=== PATIENT | female | born 1960 | race Caucasian/White ===

== ENCOUNTER 2024-12-30 22:57 | Observation (INO) ==
--- NOTE | 2024-12-30 23:05 | Emergency Department Note ---
Impression & Plan Urinary tract infection Admission ED Provider Note HPI: History obtained from patient. The patient is a 64-year-old female who presents emergency department with chief complaint of lower abdominal pain as well as nausea, vomiting, and diarrhea that began earlier this morning. Patient states her symptoms had been persistent throughout the day and therefore she contacted EMS for transport to the ED. patient also notes that she has felt somewhat dizzy recently, she states that she did have a fall from ground-level earlier today onto her buttocks when she was attempting to put on her slipper shoes. On arrival here to the ED the patient is alert, she is hypotensive at 81/60 but otherwise she is hemodynamically stable and saturating well on room air. Patient complains of some pain in her lower abdomen. ROS: - Per HPI Differential Diagnosis: Viral gastroenteritis, acute colitis, diverticulitis flare, pyelonephritis, urinary tract infection, acute cholecystitis, acute appendicitis, amongst other potential pathologies. *Outpatient medications and allergy history reviewed. PE: General: Alert, morbidly obese HEENT: Normocephalic, trachea midline Eyes: Extraocular eye movement is intact, no scleral erythema Pulmonary: Clear to auscultation bilaterally, no wheezing Cardio: Regular rate and rhythm GI: Abdomen is soft to palpation, moderate tenderness diffusely to palpation without guarding or rigidity : No suprapubic tenderness, mild left CVA tenderness MSK: No evidence of trauma or malformation of the extremities, no edema Skin: No evidence of rash Neuro: Alert, no focal deficits Psychiatric: Cooperative INDEPENDENT INTERPRETATIONS: property assessment monitor: (As interpreted by myself): - An order was placed for continuous cardiac monitoring - Patient was noted to be in sinus rhythm with a rate of 82 EKG: (As interpreted by myself): Rate: 85 Rhythm: Normal sinus rhythm Intervals: Within normal limits ST changes: No ST elevation Time: 2334 Interventions provided in ED: - IV fluid bolus, IV morphine, IV Zofran, IV ceftriaxone Medical Decision Making: IV was established and lab work obtained, patient was placed on library monitor. Lab work shows a leukocytosis of 14.21, hemoglobin is normal, platelet count is normal, CMP does not show any evidence of any critical findings, creatinine is noted to be elevated at 1.64 with unclear baseline, patient was given IV fluids in the ED. Troponin is negative, there is no transaminitis, bilirubin is normal. EKG per my interpretation shows normal sinus rhythm without any acute ischemic changes. Urinalysis was obtained and does appear to be concerning for UTI, urine nitrite is positive, 2+ leukocyte esterase, greater than 50 pyuria. Will send for culture, blood cultures were also obtained and the patient was ordered a dose of IV ceftriaxone. CT imaging was concerning for a left-sided kidney infection without any obvious ureteral stone per the interpreting radiologist. I discussed all of the above findings with the patient, she states she feels weak and would prefer admission as opposed to outpatient management which I also think is reasonable given her leukocytosis, elevated creatinine, UTI, and possible left-sided pyelonephritis. [facility] hospitalist service was consulted for admission and the patient was placed for admission in stable condition. Consultants/Discussions held with other healthcare providers: - Hospitalist, Dr. Garcia Disposition discussion held by myself with: - Patient Diagnosis: 1. Urinary tract infection, acute 2. Abdominal pain, acute 3. Left-sided pyelonephritis, acute 4. Leukocytosis, acute 5. Elevated creatinine, acute Disposition: Admission Kieran Kapoor DO Emergency Medicine Past Med/Surg History Problem List (Updated 12/31/24 @ 04:32 by Kieran Kapoor DO) Urinary tract infection (Acute) Social History Smoking Status: Current every day smoker Tobacco Type: Cigarettes Preferred Language: Lithuanian Feels Safe at Home: Yes Allergies Allergies Allergy/AdvReac Type Severity Reaction Status Date / Time aspirin Allergy Severe THROAT Verified 12/31/24 00:53 CLOSES/HIVES pollen extracts Allergy Severe CAUSE Verified 12/31/24 00:53 ASTHMA ATTACKS Home Meds Home Medications Medication Instructions Recorded Confirmed Leg Cramps 1 dose PO DIRECTED PRN LEG 12/31/24 12/31/24 CRAMPS albuterol sulfate 90 mcg/actuation 2 puff inhalation QID PRN 12/31/24 12/31/24 aerosol inhaler Shortness Of Breath Or Wheezing bupropion HCl 200 mg tablet,12 hr 200 mg PO BID 12/31/24 12/31/24 sustained-release gabapentin 600 mg tablet 600 mg PO TID 12/31/24 12/31/24 lisinopril 20 mg tablet 20 mg PO DAILY 12/31/24 12/31/24 loratadine 10 mg tablet 10 mg PO DAILY 12/31/24 12/31/24 metoprolol succinate 25 mg 25 mg PO DAILY 12/31/24 12/31/24 tablet,extended release 24 hr topiramate 100 mg tablet 100 mg PO BID 12/31/24 12/31/24 venlafaxine 75 mg capsule,extended 75 mg PO DAILY 12/31/24 12/31/24 release 24 hr Results & Data (ED) Vital Signs Vital Signs - 24 hr 12/30/24 23:15 12/30/24 23:28 12/30/24 23:30 Temperature Temperature Source Pulse Rate 87 84 Pulse Rate [Apical] 87 Pulse Rhythm Regular Pulse Rhythm [Apical] Regular Pulse Strength Normal Pulse Strength [Apical] Normal Respiratory Rate 16 16 Respiratory Effort / Characteristics Non-Labored Non-Labored Respiratory Depth Normal Normal Respiratory Pattern Regular Regular Blood Pressure 97/68 L Blood Pressure [Right Arm] 81/60 L Blood Pressure Mean 77 Blood Pressure Mean [Right Arm] 67 Blood Pressure Position Lying Blood Pressure Position [Right Arm] Lying Pulse Oximetry 96 95 Oxygen Delivery Method Room Air Room Air Sepsis Recent Fever Within 48 Hours No Sepsis New/Unexplained Change in Mental Status No Sepsis Action Taken by Nursing No Action Required 12/30/24 23:30 12/31/24 00:40 12/31/24 02:01 Temperature 37.0 C Temperature Source Oral Pulse Rate 84 Pulse Rate [Apical] 81 Pulse Rhythm Regular Pulse Rhythm [Apical] Regular Pulse Strength Pulse Strength [Apical] Normal Respiratory Rate 16 16 Respiratory Effort / Characteristics Non-Labored Respiratory Depth Normal Respiratory Pattern Regular Blood Pressure Blood Pressure [Right Arm] 138/98 Blood Pressure Mean Blood Pressure Mean [Right Arm] 111 Blood Pressure Position Blood Pressure Position [Right Arm] Lying Pulse Oximetry 95 93 Oxygen Delivery Method Room Air Room Air Sepsis Recent Fever Within 48 Hours Sepsis New/Unexplained Change in Mental Status Sepsis Action Taken by Nursing 12/31/24 03:22 Temperature Temperature Source Pulse Rate 85 Pulse Rate [Apical] Pulse Rhythm Pulse Rhythm [Apical] Pulse Strength Pulse Strength [Apical] Respiratory Rate Respiratory Effort / Characteristics Respiratory Depth Respiratory Pattern Blood Pressure Blood Pressure [Right Arm] Blood Pressure Mean Blood Pressure Mean [Right Arm] Blood Pressure Position Blood Pressure Position [Right Arm] Pulse Oximetry Oxygen Delivery Method Sepsis Recent Fever Within 48 Hours Sepsis New/Unexplained Change in Mental Status Sepsis Action Taken by Nursing Laboratory Data 12/30/24 23:54 11/24/25 23:54 Lab Results 12/30/24 12/30/24 12/31/24 Range/Units 23:28 23:54 03:02 WBC 14.21 H (4.8-10.8) K/ul RBC 5.06 (4.20-5.40) M/uL Hgb 15.3 (12.0-16.0) g/dL Hct 45.1 (37.0-47.0) % MCV 89.1 (80.0-100.0) fL MCH 30.2 (25.0-34.0) pg MCHC 33.9 (32.0-36.0) g/dL RDW Std Deviation 43.1 (36.4-46.3) fL RDW Coeff of Arnoldo 13.2 (11.5-14.5) % Plt Count 195 (130-400) K/uL MPV 12.2 (9.4-12.4) fL Immature Gran % (Auto) 1.1 % Neut % (Auto) 80.1 % Lymph % (Auto) 8.7 % [place] % (Auto) 9.5 % Eos % (Auto) 0.2 % Baso % (Auto) 0.4 % Neut # (Auto) 11.39 H (1.40-6.50) K/uL Lymph # (Auto) 1.24 (1.20-3.40) K/uL [place] # (Auto) 1.35 H (0.11-0.59) K/uL Eos # (Auto) 0.03 (0.00-0.50) K/uL Baso # (Auto) 0.05 (0.00-0.20) K/uL Immature Gran # (Auto) 0.15 (0.01-0.20) K/uL PT 10.6 (9.0-12.0) Seconds INR 1.0 (0.9-1.1) Sodium 139 (136-145) mmol/L Potassium 4.0 (3.5-5.1) mmol/L Chloride 108 H (98-107) mmol/L Carbon Dioxide 23 (21-32) mmol/L Anion Gap 8 (3-11) BUN 13 (6-23) mg/dl Creatinine 1.64 H (0.6-1.2) mg/dl Est Cr Clr Drug Dosing 44.0 ml/min eGFR 35.18 BUN/Creatinine Ratio 7.9 L (10-20) Glucose 168 H (70-99(Fasting)) mg/dl Calcium 9.0 (8.6-10.3) mg/dl Total Bilirubin 0.8 (0.2-1.0) mg/dl AST 15 (13-39) U/L ALT 11 (7-52) U/L Alkaline Phosphatase 114 H (34-104) U/L Troponin I High Sens 2.5 (0-14) pg/ml Total Protein 6.6 (6.0-8.3) gm/dl Albumin 3.7 (3.4-5.0) gm/dl Globulin 2.9 (2.5-4.0) gm/dl Albumin/Globulin Ratio 1.3 (0.9-2) Lipase 25 (11-82) U/L Urine Color Dark Yellow Urine Appearance Cloudy A (Clear) Urine pH 5.0 (4.5-7.5) Ur Specific [place] > 1.045 H (1.000-1.030) Urine Protein 2+ H (Negative) Urine Glucose (UA) Negative (Negative) Urine Ketones Trace H (Negative) Urine Blood 1+ H (Negative) Urine Nitrite Positive A (Negative) Urine Bilirubin 1+ H (Negative) Urine Urobilinogen Negative (Negative) Ur Leukocyte Esterase 2+ H (Negative) Urine WBC (Auto) >50 H (0-5) /hpf Urine RBC (Auto) 3-5 H (0-2) /hpf U Hyaline Cast (Auto) 11-20 H (0-2) /lpf U Epithel Cells (Auto) 3-5 H (0-2) /hpf Urine Bacteria (Auto) 1+ H (None Seen) Urine Comment SARS-CoV-2 (PCR) NEGATIVE (Negative) Influenza Type A (PCR) Negative (Neg) Influenza Type B (PCR) Negative (Neg) RSV (RT-PCR) Negative (Neg) Administered Medications Discontinued Medications Sodium Chloride (Nss) 1,000 mls @ 999 mls/hr IV .Q1H1M STA Stop: 12/31/24 00:00 Last Infusion: 12/31/24 00:59 Dose: Infused Documented By: henry Admin: 12/30/24 23:48 Dose: 999 mls/hr Documented By: henry Sodium Chloride (Nss) 1,000 mls @ 999 mls/hr IV .Q1H1M ONE Stop: 12/31/24 01:33 Last Infusion: 12/31/24 01:45 Dose: Infused Documented By: henry Admin: 12/31/24 00:42 Dose: 999 mls/hr Documented By: henry Ioversol (Optiray 320 100ml) 100 ml IV ONCE ONE Stop: 12/31/24 01:08 Last Admin: 12/31/24 01:08 Dose: 93 ml Documented By: KELTON Morphine Sulfate (Morphine Sulfate 4 Mg/Ml 1 Ml Carp\Vial) 4 mg IV NOW STA Stop: 12/30/24 23:05 Last Admin: 12/31/24 00:06 Dose: 4 mg Documented By: henry Ondansetron HCl (Ondansetron Inj 2 Mg/Ml 2 Ml Vial) 4 mg IV NOW STA Stop: 12/30/24 23:01 Last Admin: 12/30/24 23:06 Dose: 4 mg Documented By: henry Imaging Data Radiologist's Impression: Abdomen/Pelvis CT 12/30/24 23:04 EXAM: CT abd pelvis IV con only CLINICAL HISTORY: N/V/D TECHNIQUE: Contiguous axial images were obtained from the level of the diaphragm to the pubic symphysis with intravenous contrast. Coronal and sagittal reconstructions were likewise performed and indicated to increase the sensitivity for detecting clinically relevant pathology. If IV contrast material had not been administered, the likelihood of detecting abnormalities relevant to the patient's condition would have been substantially decreased. CT scan was performed according to ALARA (as low as reasonably achievable). COMPARISON: None. FINDINGS: The visualized lung bases are clear. The liver is normal in size and attenuation. No focal liver lesions are seen. There is no intra or extrahepatic biliary ductal dilatation. Hepatic vasculature is patent. The gallbladder is present. The spleen, pancreas, and adrenal glands are unremarkable. Left kidney appears relatively small in size as compared its counterpart and shows moderate left perinephric fat stranding.Mild hydronephrosis with entire left ureter is prominent with no obvious ureteric calculus. Left kidney show nonobstructing calculus of size 4 mm in mid calyx 3 mm, 2 mm and 1 mm in lower calyx. Right kidney is normal in size and attenuation-There is no hydronephrosis or perinephric fat stranding. No renal calculi or renal masses are identified. The bladder is empty. Pelvic viscera are unremarkable. No focal or diffuse bowel wall thickening or evidence of bowel obstruction is identified. No imaging evidence of appendicitis. Abdominal and pelvic vasculature is patent. No adenopathy or fluid collections are seen. No aggressive appearing osseous lesions are identified. IMPRESSION: Left kidney appears relatively small in size as compared its counterpart and shows moderate left perinephric fat stranding. Mild hydronephrosis with entire left ureter is prominent with no obvious ureteric calculus. Left kidney show nonobstructing calculus of size 4 mm in mid-calyx 3 mm, 2 mm and 1 mm in lower calyx. Electronically signed by Renan Muñiz 12-31-2024 02:04 AM Discharge Plan Visit Data Chief Complaint: GI Assessment Stated Complaint: Nausea/Vomitting/Diarrhea ED Provider: Kieran Kapoor Discharge Problem: Urinary tract infection Patient Disposition: Admitted As Inpatient Condition: Fair Forms Stand Alone Forms: [facility] [place] [facility] Prescriptions Prescriptions: No Action venlafaxine 75 mg capsule,extended release 24hr 75 mg PO DAILY gabapentin 600 mg tablet 600 mg PO TID lisinopril 20 mg tablet 20 mg PO DAILY metoprolol succinate 25 mg tablet extended release 24 hr 25 mg PO DAILY albuterol sulfate 90 mcg/actuation HFA aerosol inhaler 2 puff INHALATION QID PRN (Reason: Shortness Of Breath Or Wheezing) topiramate 100 mg tablet 100 mg PO BID loratadine 10 mg Tablet 10 mg PO DAILY bupropion HCl 200 mg tablet sustained-release 12 hr 200 mg PO BID Leg Cramps 1 dose PO DIRECTED PRN (Reason: LEG CRAMPS) Referrals Referrals: PCP,NO [Physician] - Discharge Problem: Urinary tract infection Qualifiers: Urinary tract infection type: site unspecified Hematuria presence: with hematuria Qualified Code(s): N39.0 - Urinary tract infection, site not specified ; R31.9 - Hematuria, unspecified
[2024-12-30] MEDS: ONDANSETRON INJ 2 MG/ML 2 ML VIAL IV STA (23:06)
[2024-12-30] MEDS: SODIUM CHLORIDE 0.9% 1,000 ML IV STA (23:48)
[2024-12-31] MEDS: MoRPHine SULFATE 4 MG/ML 1 ML CARP\\VIAL IV STA (00:06)
[2024-12-31 00:18] LABS: Influenza A virus by PCR Negative (Neg); Influenza B virus by PCR Negative (Neg); SARS CoV2 RNA(COVID-19) Ceph NEGATIVE (Negative)
[2024-12-31 00:31] LABS: Hematocrit (blood only) 45.1 % (37.0-47.0); Hemoglobin 15.3 g/dL (12.0-16.0); Immature Granulocytes # (auto) 0.15 K/uL (0.01-0.20); Immature Granulocytes % (auto) 1.1 %; Mean Corpuscular Hemoglobin 30.2 pg (25.0-34.0); Mean Corpuscular Volume 89.1 fL (80.0-100.0); Platelet Count 195 K/uL (130-400); RDW Standard Deviation 43.1 fL (36.4-46.3); Red Blood Count 5.06 M/uL (4.20-5.40); White Blood Count 14.21 K/ul (4.8-10.8)
[2024-12-31] MEDS: SODIUM CHLORIDE 0.9% 1,000 ML IV ONE (00:42)
[2024-12-31 00:48] LABS: Alanine Aminotransferase 11.0 U/L (7-52); Albumin Globulin Ratio 1.3 (0.9-2); Albumin Level 3.7 gm/dl (3.4-5.0); Alkaline Phosphatase 114.0 U/L (34-104); Anion Gap 8.0 (3-11); Bilirubin,Total 0.8 mg/dl (0.2-1.0); Blood Urea Nitrogen 13.0 mg/dl (6-23); Calcium 9.0 mg/dl (8.6-10.3); Carbon Dioxide 23.0 mmol/L (21-32); Chloride 108.0 mmol/L (98-107); Creatinine Clr Calc Pharmacy 44.0 ml/min; Globulin 2.9 gm/dl (2.5-4.0); Glucose 168.0 mg/dl (70-99(Fasting)); Lipase 25.0 U/L (11-82); Potassium 4.0 mmol/L (3.5-5.1); Sodium 139.0 mmol/L (136-145); Total Protein 6.6 gm/dl (6.0-8.3)
[2024-12-31 00:54] LABS: INR 1.0 (0.9-1.1); Prothrombin Time 10.6 Seconds (9.0-12.0)
[2024-12-31] MEDS: OPTIRAY 320 100ml IV ONE (01:08)
--- NOTE | 2024-12-31 02:05 | CT Scan Report ---
EXAM: CT abd pelvis IV con only CLINICAL HISTORY: N/V/D TECHNIQUE: Contiguous axial images were obtained from the level of the diaphragm to the pubic symphysis with intravenous contrast. Coronal and sagittal reconstructions were likewise performed and indicated to increase the sensitivity for detecting clinically relevant pathology. If IV contrast material had not been administered, the likelihood of detecting abnormalities relevant to the patient's condition would have been substantially decreased. CT scan was performed according to ALARA (as low as reasonably achievable). COMPARISON: None. FINDINGS: The visualized lung bases are clear. The liver is normal in size and attenuation. No focal liver lesions are seen. There is no intra or extrahepatic biliary ductal dilatation. Hepatic vasculature is patent. The gallbladder is present. The spleen, pancreas, and adrenal glands are unremarkable. Left kidney appears relatively small in size as compared its counterpart and shows moderate left perinephric fat stranding.Mild hydronephrosis with entire left ureter is prominent with no obvious ureteric calculus. Left kidney show nonobstructing calculus of size 4 mm in mid calyx 3 mm, 2 mm and 1 mm in lower calyx. Right kidney is normal in size and attenuation-There is no hydronephrosis or perinephric fat stranding. No renal calculi or renal masses are identified. The bladder is empty. Pelvic viscera are unremarkable. No focal or diffuse bowel wall thickening or evidence of bowel obstruction is identified. No imaging evidence of appendicitis. Abdominal and pelvic vasculature is patent. No adenopathy or fluid collections are seen. No aggressive appearing osseous lesions are identified. IMPRESSION: Left kidney appears relatively small in size as compared its counterpart and shows moderate left perinephric fat stranding. Mild hydronephrosis with entire left ureter is prominent with no obvious ureteric calculus. Left kidney show nonobstructing calculus of size 4 mm in mid-calyx 3 mm, 2 mm and 1 mm in lower calyx. Electronically signed by Renan Muñiz 12-31-2024 02:04 AM
[2024-12-31 03:45] LABS: Appearance Urine Cloudy (Clear); Bacteria Urine Automated 1+ (None Seen); Glucose Urine UA Negative (Negative); WBC Urine Automated >50 /hpf (0-5)
--- NOTE | 2024-12-31 04:12 | History & Physical Report ---
Date of Service December 31, 2024 Assessment & Plan (1) Pyelonephritis: (2) CELESTE (acute kidney injury): Plan 64-year-old female PMHx leg cramps, HTN, and allergies presenting for severe back pain and inability to stand. Evaluation significant for leukocytosis, elevated creatinine, and presence of UTI. Imaging reveals L perinephric fat stranding, hydronephrosis, with nonobstructing calculi. Admission for pyelonephritis. #Pyelonephritis/CELESTE Severe back pain night [employer], associated with episode of syncope 2/2 pain; initially hypotensive on arrival, responded to IVF appropriately. CELESTE in setting of L pyelonephritis. No LUTS. ? passed renal stone. Hypotensive on arrival initially 80/60 then 97/68, responsive to fluids. Not meeting SIRS criteria. Admission IV abx and IVF. - CBC leukocytosis 14.21; CMP Cr 1.64, BUN 13; lactate pending - CBC, BMP am - UA (+) infection; no prior cultures - pending cx - Blood cultures pending - CTAP L perinephric fat stranding, hydronephrosis no calculus, nonobstructing calculi throughout - Hold nephrotoxic agents -- lisinopril - IVF Plasmalyte @ 100 mL/hr x 1L - Zofran prn N/V - Acetaminophen prn fever/pain, morphine prn severe pain - Ceftriaxone IV - continue #HTN- Metoprolol, Lisinopril -- hold lisinopril in presence of CELESTE #Psych- Bupropion, venlafaxine - continue #Neuropathy- Gabapentin - continue #Allergies- Loratadine - continue #Migraines- Topiramate - continue Dispo: Admit, PCU VTE Prophylaxis: SCDs This document was dictated utilizing DGTS. Please excuse any grammatical errors that may be secondary to use of this software. Admission and Anticipated Discharge Date Admission Date: 12/31/2024 History of Present Illness Chief Complaint: Back pain Primary Care Provider: Marita Menon 64-year-old female PMHx leg cramps, HTN, and allergies presenting for severe back pain and inability to stand. Patient states that she "passed out" twice the night [employer]. She states that she felt dizzy just prior to passing out and "did not feel good." She says she stood up quick felt presyncopal, and felt t hat she was going to fall down. She did have back pain that was in the middle, but did radiate to the right side as well. States that is send has had back pain. 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 No urinary incontinence or saddle anesthesia. Admits to fever 100 to 102 F, unable to tell me when these fevers were however. She started having full body shaking approximately 15 minutes prior to my meeting with her. She admits to lower abdominal pain, denies any LUTS. No chest pain or shortness of breath. Patient has not been sick otherwise. Denies palpitations, N/V/D/C, URI symptoms, weakness, recent sick contacts. ED evaluation reveals CBC leukocytosis 14.21, stable H/H; PT/INR WNL; CMP Cl 108, Cr 1.64, ratio 7.9, glucose 168, alk phos 114; trop 2.5; UA (+) infection; flu/COVID/RSV negative; CTAP L kidney moderate perinephric fat stranding/mild hydronephrosis, nonobstructing calculi.; Provided with 2L NSS, zo whitney 4mg IV, morphine 4mg IV, and ceftriaxone 2g IV in ED. Please see Dr. Garcia's attestation for adjustments/additions to treatment plan. Allergies Allergy/AdvReac Type Severity Reaction Status Date / Time aspirin Allergy Severe THROAT Verified 12/31/24 00:53 CLOSES/HIVES pollen extracts Allergy Severe CAUSE Verified 12/31/24 00:53 ASTHMA ATTACKS Home Medications Medication Instructions Recorded Confirmed Type Leg Cramps 1 dose PO DIRECTED PRN LEG 12/31/24 12/31/24 History CRAMPS albuterol sulfate 90 mcg/actuation 2 puff inhalation QID PRN 12/31/24 12/31/24 History aerosol inhaler Shortness Of Breath Or Wheezing bupropion HCl 200 mg tablet,12 hr 200 mg PO BID 12/31/24 12/31/24 History sustained-release gabapentin 600 mg tablet 600 mg PO TID 12/31/24 12/31/24 History lisinopril 20 mg tablet 20 mg PO DAILY 12/31/24 12/31/24 History loratadine 10 mg tablet 10 mg PO DAILY 12/31/24 12/31/24 History metoprolol succinate 25 mg 25 mg PO DAILY 12/31/24 12/31/24 History tablet,extended release 24 hr topiramate 100 mg tablet 100 mg PO BID 12/31/24 12/31/24 History venlafaxine 75 mg capsule,extended 75 mg PO DAILY 12/31/24 12/31/24 History release 24 hr Past Med/Surg History Problem List (Updated 12/31/24 @ 05:42 by Linda Damian) CELESTE (acute kidney injury) Pyelonephritis Urinary tract infection (Acute) Social History Smoking Status: Current every day smoker Tobacco Type: Cigarettes Cigarettes Per Day: 30; Do You Dip or Chew Tobacco: No; Hx Alcohol Use: No Hx Substance Use: No Preferred Language: Azerbaijani Communication Ability: Effective Vp Sales Required: No Beliefs That Will Affect Care: None Current Living Situation: Other Current Living Situation Comment: roommate Feels Safe at Home: Yes Safety Concerns: Feels Safe At This Time Assistive Devices: None Review of Systems Review of Systems: All systems reviewed & are unremarkable except as noted in Subjective Physical Exam Physical Exam: General: No acute distress, rigors. Skin: Warm and dry, without rashes or lesions. No cyanosis or clubbing Head: Normocephalic, atraumatic Eyes: PERRL, conjunctivae clear, sclera non-icteric; EOM intact ENT: External ear and ear canal without swelling; nose atraumatic; good dentition, tongue normal appearance, pharynx normal without tonsillar swelling or exudate, lips appear dry Neck: Supple, no LAD; no JVD Cardio: RRR, no M/G/R, S1 and S2 normal Resp: Chest wall symmetric, normal respiratory effort; No respiratory distress, Lungs CTA in all lobes bilaterally, no wheezes, rales, or rhonchi Abdomen: Soft, symmetric, nontender; multiple healing wounds on abdomen patient reports from To; no visible scars; no distention; No masses or hepatosplenomegaly; Bowel sounds normoactive; CVA tenderness R side MSK: No deformities, full ROM throughout; pulses palpable and equal; no edema. Neuro: Awake, alert; Muscle strength 5/5 bilaterally in UE/LE; Sensation intact bilaterally; CN intact Psych: Appropriate mood and affect; good judgement and insight. Results & Data Results & Data Vital Signs (Past 12 Hours) Vital Signs Temp Pulse Pulse Resp BP BP Pulse Ox 12/31/24 03:22 85 12/31/24 02:01 81 16 138/98 93 12/31/24 00:40 37.0 C 12/30/24 23:30 84 16 95 12/30/24 23:30 84 16 97/68 L 95 12/30/24 23:28 87 12/30/24 23:15 87 16 81/60 L 96 O2 Del Method 12/31/24 03:22 12/31/24 02:01 Room Air 12/31/24 00:40 12/30/24 23:30 Room Air 12/30/24 23:30 Room Air 12/30/24 23:28 12/30/24 23:15 Room Air Laboratory Results 12/31/24 03:02 Urine Culture - Pending Urine,Straight Cath 12/31/24 12/30/24 12/30/24 03:02 23:54 23:28 WBC 14.21 H RBC 5.06 Hgb 15.3 Hct 45.1 MCV 89.1 MCH 30.2 MCHC 33.9 RDW Std Deviation 43.1 RDW Coeff of Arnoldo 13.2 Plt Count 195 MPV 12.2 Immature Gran % (Auto) 1.1 Neut % (Auto) 80.1 Lymph % (Auto) 8.7 Cedar % (Auto) 9.5 Eos % (Auto) 0.2 Baso % (Auto) 0.4 Neut # (Auto) 11.39 H Lymph # (Auto) 1.24 Cedar # (Auto) 1.35 H Eos # (Auto) 0.03 Baso # (Auto) 0.05 Immature Gran # (Auto) 0.15 PT 10.6 INR 1.0 Sodium 139 Potassium 4.0 Chloride 108 H Carbon Dioxide 23 Anion Gap 8 BUN 13 Creatinine 1.64 H Est Cr Clr Drug Dosing 44.0 eGFR 35.18 BUN/Creatinine Ratio 7.9 L Glucose 168 H Calcium 9.0 Total Bilirubin 0.8 AST 15 ALT 11 Alkaline Phosphatase 114 H Troponin I High Sens 2.5 Total Protein 6.6 Albumin 3.7 Globulin 2.9 Albumin/Globulin Ratio 1.3 Lipase 25 Urine Color Dark Yellow Urine Appearance Cloudy A Urine pH 5.0 Ur Specific Lawrence > 1.045 H Urine Protein 2+ H Urine Glucose (UA) Negative Urine Ketones Trace H Urine Blood 1+ H Urine Nitrite Positive A Urine Bilirubin 1+ H Urine Urobilinogen Negative Ur Leukocyte Esterase 2+ H Urine WBC (Auto) >50 H Urine RBC (Auto) 3-5 H U Hyaline Cast (Auto) 11-20 H U Epithel Cells (Auto) 3-5 H Urine Bacteria (Auto) 1+ H Urine Comment SARS-CoV-2 (PCR) NEGATIVE Influenza Type A (PCR) Negative Influenza Type B (PCR) Negative RSV (RT-PCR) Negative Diagnostic Findings Abdomen/Pelvis CT 12/30/24 23:04 EXAM: CT abd pelvis IV con only CLINICAL HISTORY: N/V/D TECHNIQUE: Contiguous axial images were obtained from the level of the diaphragm to the pubic symphysis with intravenous contrast. Coronal and sagittal reconstructions were likewise performed and indicated to increase the sensitivity for detecting clinically relevant pathology. If IV contrast material had not been administered, the likelihood of detecting abnormalities relevant to the patient's condition would have been substantially decreased. CT scan was performed according to ALARA (as low as reasonably achievable). COMPARISON: None. FINDINGS: The visualized lung bases are clear. The liver is normal in size and attenuation. No focal liver lesions are seen. There is no intra or extrahepatic biliary ductal dilatation. Hepatic vasculature is patent. The gallbladder is present. The spleen, pancreas, and adrenal glands are unremarkable. Left kidney appears relatively small in size as compared its counterpart and shows moderate left perinephric fat stranding.Mild hydronephrosis with entire left ureter is prominent with no obvious ureteric calculus. Left kidney show nonobstructing calculus of size 4 mm in mid calyx 3 mm, 2 mm and 1 mm in lower calyx. Right kidney is normal in size and attenuation-There is no hydronephrosis or perinephric fat stranding. No renal calculi or renal masses are identified. The bladder is empty. Pelvic viscera are unremarkable. No focal or diffuse bowel wall thickening or evidence of bowel obstruction is identified. No imaging evidence of appendicitis. Abdominal and pelvic vasculature is patent. No adenopathy or fluid collections are seen. No aggressive appearing osseous lesions are identified. IMPRESSION: Left kidney appears relatively small in size as compared its counterpart and shows moderate left perinephric fat stranding. Mild hydronephrosis with entire left ureter is prominent with no obvious ureteric calculus. Left kidney show nonobstructing calculus of size 4 mm in mid-calyx 3 mm, 2 mm and 1 mm in lower calyx. Electronically signed by Renan Muñiz 12-31-2024 02:04 AM Medications Administered 2L NSS Zofran 4mg IV Morphine 4mg IV Ceftriaxone 2g IV ECG Additional Comments: NSR, nonspecific T wave abnormality 85 bpm, GA 154, QRS 88, QT/QTc 372/442, PRT 53/50/31 Code Status & VTE Plan Code Status Full Supervising Physician Co-Signing Physician Notes Attending addendum: I have physically seen this patient, have supervised the JANESSA's activities, and agree with the H&P unless as otherwise noted. Assessment and Plan: The patient is a 64-year-old female with past medical history including leg cramps, hypertension, and allergies. She presents to the emergency department with severe back pain, with inability to stand, and difficulty walking. Significant lab testing: Normal COVID/flu/RSV testing. Urinalysis positive for urinary tract infection. Creatinine 1.64. CT abdomen pelvis with left kidney small, and mild left hydroureter with multiple left calculi. Patient referred for evaluation for admission to hospital service. Pyelonephritis/CELESTE- Follow urine culture sensitivity Follow-up blood culture results. CT abdomen pelvis as above Plasma-Lyte 100 mL/h x 1 L Zofran 4 mg IV every 6 hours as needed Acetaminophen 1 g IV every 8 hours as needed for mild pain or fever Morphine sulfate 2 mg IV every 3 hours needed for moderate to severe pain Ceftriaxone 2 g IV every 24 hours to be continued Hold lisinopril Hypertension hypertension Lisinopril on hold as noted Continue metoprolol with parameters Neuropathy/migraines/mood disorder- Continue gabapentin, topiramate, bupropion and venlafaxine Remaining orders and notations as noted PG Care Time/CCT Total # of Minutes Spent Total Time Spent with Patient: Total time spent is greater than 50% in coordination of care (as documented) at patient's floor/unit and/or counseling patient: Coding Level of Care Code 23680 INT INP/OBS CARE 3/75MIN Diagnoses Pyelonephritis N12 CELESTE (acute kidney injury) N17.9
[2024-12-31] MEDS: cefTRIAXone SODIUM 2,000 MG/50 ML BAG IV STA (05:03)
[2024-12-31] MEDS ORDERED: MoRPHine SULFATE 4 MG/ML 1 ML CARP\\VIAL IV PRN (05:09)
[2024-12-31] MEDS ORDERED: MoRPHine SULFATE 2 MG/ML CARP IV PRN (05:09)
[2024-12-31] MEDS ORDERED: ACETAMINOPHEN 325 MG TAB PO PRN ×2 (05:09→05:50)
[2024-12-31] MEDS ORDERED: ALBUTEROL HFA 8 GM INHALER INH PRN (05:50)
[2024-12-31] MEDS ORDERED: POLYETHYLENE (MIRALAX) 17 GM PACK PO PRN (05:50)
[2024-12-31] MEDS ORDERED: ONDANSETRON INJ 2 MG/ML 2 ML VIAL IV PRN (05:50)
[2024-12-31] MEDS: PLASMA-LYTE A 1,000 ML IV SCH (05:53)
[2024-12-31] MEDS ORDERED: INFLUENZA VACC TS2025-26(6m+)/PF (IIV3) 0.5mL Syr IM ONE (06:27)
[2024-12-31] MEDS: ACETAMINOPHEN 1,000 MG/100 ML VIAL IV STA (06:35)
[2024-12-31] MEDS ORDERED: VANCOMYCIN CONSULT ACTIVE PRN ×2 (08:53)
[2024-12-31] MEDS: SODIUM CHLORIDE 0.9% 1,000 ML IV SCH (09:13)
[2024-12-31 09:35] LABS: Hematocrit (blood only) 46.8 % (37.0-47.0); Hemoglobin 15.6 g/dL (12.0-16.0); Mean Corpuscular Hemoglobin 29.4 pg (25.0-34.0); Mean Corpuscular Volume 88.3 fL (80.0-100.0); Platelet Count 187 K/uL (130-400); RDW Standard Deviation 43.7 fL (36.4-46.3); Red Blood Count 5.30 M/uL (4.20-5.40); White Blood Count 24.20 K/ul (4.8-10.8)
[2024-12-31 09:46] LABS: Alanine Aminotransferase 9.0 U/L (7-52); Albumin Level 3.7 gm/dl (3.4-5.0); Alkaline Phosphatase 107.0 U/L (34-104); Anion Gap 7.0 (3-11); Blood Urea Nitrogen 15.0 mg/dl (6-23); Calcium 8.8 mg/dl (8.6-10.3); Carbon Dioxide 21.0 mmol/L (21-32); Chloride 110.0 mmol/L (98-107); Creatinine Clr Calc Pharmacy 48.5 ml/min; Glucose 134.0 mg/dl (70-99(Fasting)); Potassium 4.4 mmol/L (3.5-5.1); Sodium 138.0 mmol/L (136-145)
[2024-12-31 09:53] LABS: Albumin Globulin Ratio 1.4 (0.9-2); Bilirubin,Total 0.6 mg/dl (0.2-1.0); Globulin 2.7 gm/dl (2.5-4.0); Total Protein 6.4 gm/dl (6.0-8.3)
[2024-12-31 09:56] LABS: Immature Granulocytes # (auto) 0.13 K/uL (0.01-0.20); Immature Granulocytes % (auto) 0.5 %; Polychromasia 1+; Toxic Vacuolation 1+
[2024-12-31] MEDS: VANCOMYCIN HCL 2,250 MG in SODIUM CHLORIDE 0.9% 500 ML IV ONE (10:41)
[2024-12-31] MEDS: GABAPENTIN 600 MG TAB PO SCH (10:43)
[2024-12-31] MEDS: VENLAFAXINE HCL XR 75 MG CAPXR PO SCH (10:44)
[2024-12-31] MEDS: TOPIRAMATE 100 MG TAB PO SCH (10:44)
[2024-12-31] MEDS: METOPROLOL SUCC 25MG EXT REL TAB PO SCH (10:44)
[2024-12-31] MEDS: LORATADINE 10 MG TAB PO SCH (10:44)
[2024-12-31] MEDS: MEROPENEM 500 MG in SYRINGE 0 ML IV SCH (10:57)
--- NOTE | 2024-12-31 13:03 | Pharmacy Report ---
Pharmacy PK ABX Note - Date of Service December 31, 2024 - Assessment and Plan Assessment 64 year old F receiving vancomycin and meropenem for treatment of pyelonephritis. Antibiotics broadened from ceftriaxone this morning. * Leukocytosis worsening (Wbc 14.2 on admit and 24.2 today with ANC= 20), lactate of 3, and procal of 8.1. Tmax this morning was 38.4 C. * CELESTE but improving (Scr on admit 1.64 and today 1.49) * Pertinent microbiologic data includes: blood and urine cultures from today are pending. Day # 1 of vancomycin therapy Plan Vancomycin * Loading dose: 2250 mg IV x 1 * Maintenance dose: 1000 mg IV every 24 hours * Regimen is predicted to achieve target AUC/ASTON of 400-600 mg/L.hr * Random level will be ordered in the next few days if vancomycin is continued. Pharmacy will continue to follow and will adjust dose/frequency as necessary. Thank you. Pharmacy has transitioned to AUC monitoring for vancomycin. AUC/ASTON is the preferred PK/PD target and is associated with decreased risk of nephrotoxicity compared to traditional trough targets.
--- NOTE | 2024-12-31 13:05 | Electrocardiogram Report ---
Test Reason : Blood Pressure : */* mmHG Vent. Rate : 85 BPM Atrial Rate : 85 BPM P-R Int : 154 ms QRS Dur : 88 ms QT Int : 372 ms P-R-T Axes : 53 50 31 degrees QTcB Int : 442 ms Normal sinus rhythm Nonspecific T wave abnormality Abnormal ECG No previous ECGs available Confirmed by Jeronimo Suggs ([id number]) on 12/31/2024 1:05:45 PM Referred By: REFERRED SELF Confirmed By: Jeronimo Suggs
[2024-12-31] MEDS ORDERED: ACETAMINOPHEN 1,000 MG/100 ML VIAL IV PRN (15:57)
[2024-12-31] MEDS: ACETAMINOPHEN 1,000 MG/100 ML VIAL IV PRN (16:15)
--- NOTE | 2024-12-31 22:26 | Communication Note ---
Date of Service: December 31, 2024 Exapnded antbiotics as patient in the AM was more lethargic. After fluid boluses, her mental status improved. Reached out to Urology, no need for stent placement eenthough patient has mild hydronephrosis, no obstruction noted. Updated family multiple times during today. Despite fevers, vitals have been relatively stable.
[2025-01-01 00:24] LABS: Cdiff Toxin B Gene (2yr or >) Negative Cdiff Gene (Neg)
[2025-01-01 00:54] LABS: Adenovirus F 40/41 PCR Not Detected (NotDetected); Campylobacter PCR Not Detected (NotDetected); Enteroaggregative E.coli(EAEC) Not Detected (NotDetected); Shiga-like Toxin E.coli (STEC) Not Detected (NotDetected); Vibrio species PCR Not Detected (NotDetected)
[2025-01-01] MEDS ORDERED: cefTRIAXone SODIUM 2,000 MG/50 ML BAG IV SCH (05:00)
[2025-01-01] MEDS: VANCOMYCIN HCL / NSS 1,000 MG/270 ML BAG IV SCH (06:06)
[2025-01-01 08:07] LABS: Hematocrit (blood only) 39.4 % (37.0-47.0); Hemoglobin 13.2 g/dL (12.0-16.0); Mean Corpuscular Hemoglobin 30.1 pg (25.0-34.0); Mean Corpuscular Volume 89.7 fL (80.0-100.0); Platelet Count 154 K/uL (130-400); RDW Standard Deviation 45.4 fL (36.4-46.3); Red Blood Count 4.39 M/uL (4.20-5.40); White Blood Count 25.90 K/ul (4.8-10.8)
[2025-01-01 08:27] LABS: Anion Gap 7.0 (3-11); Blood Urea Nitrogen 18.0 mg/dl (6-23); Calcium 8.1 mg/dl (8.6-10.3); Carbon Dioxide 22.0 mmol/L (21-32); Chloride 108.0 mmol/L (98-107); Creatinine Clr Calc Pharmacy 52.0 ml/min; Glucose 87.0 mg/dl (70-99(Fasting)); Potassium 3.7 mmol/L (3.5-5.1); Sodium 137.0 mmol/L (136-145)
[2025-01-01] MEDS: ACETAMINOPHEN 325 MG TAB PO PRN (12:47)
[2025-01-01] MEDS: MEROPENEM 500 MG in SYRINGE 0 ML IV SCH (16:01)
--- NOTE | 2025-01-01 20:01 | Hospitalist Progress Note ---
Date of Service January 01, 2025 Assessment & Plan (1) Pyelonephritis: (2) CELESTE (acute kidney injury): Plan 64-year-old female PMHx leg cramps, HTN, and allergies presenting for severe back pain and inability to stand. Evaluation significant for leukocytosis, elevated creatinine, and presence of UTI. Imaging reveals L perinephric fat stranding, hydronephrosis, with nonobstructing calculi. Admission for pyelonephritis. #Pyelonephritis/CELESTE/ severe spesis Severe back pain night [employer], associated with episode of syncope 2/2 pain; initially hypotensive on arrival, responded to IVF appropriately. CELESTE in setting of L pyelonephritis. No LUTS. ? passed renal stone. Hypotensive on arrival initially 80/60 then 97/68, responsive to fluids. Not meeting SIRS criteria. Admission IV abx and IVF. - WBC worsened but clinical presentation much improved -fever curve improved. -On meropenem - UA (+) infection; no prior cultures - pending cx - CTAP L perinephric fat stranding, hydronephrosis no calculus, nonobstructing calculi throughout - Hold nephrotoxic agents -- lisinopril - Zofran prn N/V - Acetaminophen prn fever/pain, morphine prn severe pain #HTN- Metoprolol, Lisinopril -- hold lisinopril in presence of CELESTE #Psych- Bupropion, venlafaxine - continue consult behavior health liason for depression management #Neuropathy- Gabapentin - continue #Allergies- Loratadine - continue #Migraines- Topiramate - continue Dispo: Admit, PCU VTE Prophylaxis: SCDs Admission and Anticipated Discharge Date Admission Date: December 31, 2024 Subjective Patient is more awake today. Family at bedside and are updated. Physical Exam Constitutional: WD/WN, vitals as above Neck: trachea midline, no thyromegaly Respiratory: normal respiratory effort, lungs clear to auscultation Cardiovascular: Rate/Rhythm: + tachycardic Gastrointestinal (Abdomen): normal bowel sounds, soft, nontender, no hepatosplenomegaly Musculoskeletal: Bilateral CVA tenderness Psychiatric: A+Ox3, euthymic affect Results & Data Results & Data Vital Signs (Past 12 Hours) Vital Signs Temp Pulse Pulse Resp BP Pulse Ox O2 Del Method 01/01/25 16:22 18 93 Nasal Cannula 01/01/25 15:35 37.1 C 111 H 19 103/61 91 Room Air 01/01/25 14:09 110 H 01/01/25 12:23 36.7 C 116 H 19 115/55 L 97 Room Air 01/01/25 10:53 98 H 01/01/25 09:59 Nasal Cannula O2 Flow Rate 01/01/25 16:22 1 01/01/25 15:35 01/01/25 14:09 01/01/25 12:23 01/01/25 10:53 01/01/25 09:59 2 PG Care Time/CCT Total # of Minutes Spent Total Time Spent with Patient: Total time spent is greater than 50% in coordination of care (as documented) at patient's floor/unit and/or counseling patient: Coding Level of Care Code 61847 SUB INP/OBS CARE 3/50MIN Diagnoses Pyelonephritis N12 CELESTE (acute kidney injury) N17.9
[2025-01-01] MEDS: LACTATED RINGER'S 1,000 ML IV ONE (20:08)
[2025-01-01] MEDS: LACTATED RINGER'S 1,000 ML IV SCH (21:44)
[2025-01-02 07:37] LABS: Creatinine Clr Calc Pharmacy 68.9 ml/min
[2025-01-02] MEDS: cefTRIAXone SODIUM 2,000 MG/50 ML BAG IV SCH (10:06)
--- NOTE | 2025-01-02 10:48 | Hospitalist Progress Note ---
Date of Service January 02, 2025 Assessment & Plan (1) Pyelonephritis: (2) CELESTE (acute kidney injury): Plan 64-year-old female PMHx leg cramps, HTN, and allergies presenting for severe back pain and inability to stand. Evaluation significant for leukocytosis, elevated creatinine, and presence of UTI. Imaging reveals L perinephric fat stranding, hydronephrosis, with nonobstructing calculi. Admission for pyelonephritis. #Pyelonephritis/CELESTE Found to have pyelonephritis at the time of admission; urine culture has resulted with pansensitive E. coli; narrow antibiotics as detailed below Discontinue meropenem Start Rocephin 2 g IV daily #HTN- Metoprolol, Lisinopril -- hold lisinopril in presence of CELESTE #Psych- Bupropion, venlafaxine - continue consult behavior health liason for depression management #Neuropathy- Gabapentin - continue #Allergies- Loratadine - continue #Migraines- Topiramate - continue VTE Prophylaxis: SCDs Admission and Anticipated Discharge Date Admission Date: December 31, 2024 Subjective Ms. Barahona is a 64-year-old female whose active medical conditions include hypertension, major depressive disorder with superimposed anxiety among other chronic medical conditions who presented to the [facility] due to severe back pain and progressive weakness found to have pyelonephritis. Patient was hypotensive overnight on 01/01 without associated symptoms, they were provided with crystalloid volume resuscitation without further complication; this morning they feel well with no complaints Review of Systems Review of Systems: Review of constitutional, genitourinary, cardiovascular, pulmonary systems was unremarkable except for pertinent positive and negative findings discussed above Physical Exam Physical Exam: General: Adult female in no acute distress Vital Signs: Reviewed HEENT: Moist mucous membranes Pulmonary: Symmetrically reduced chest wall excursion secondary to body habitus; clear to auscultation bilaterally Cardiovascular: Regular rate and rhythm without murmur, rub, or gallop; right radial pulse 2+; no notable lower extremity edema Genitourinary: Smith catheter in place with approximately 100 mL of pale yellow urine without sediment Neurologic: Cranial nerves II through XII grossly intact; no discernible focal weakness or paresthesia Results & Data Results & Data Vital Signs (Past 12 Hours) Vital Signs Temp Pulse Resp BP Pulse Ox O2 Del Method O2 Flow Rate 01/02/25 08:14 36.7 C 104 H 18 114/71 98 Room Air 01/02/25 03:40 36.9 C 98 H 20 126/74 96 Nasal Cannula 2 01/01/25 23:18 36.7 C 96 H 20 92/63 L 95 Nasal Cannula 2 PG Care Time/CCT Total # of Minutes Spent Total Time Spent with Patient: Total time spent is greater than 50% in coordination of care (as documented) at patient's floor/unit and/or counseling patient: Coding Level of Care Code 89016 SUB INP/OBS CARE 235MIN Diagnoses Pyelonephritis N12 CELESTE (acute kidney injury) N17.9
[2025-01-02] MEDS: ACETAMINOPHEN 325 MG TAB PO PRN (14:49)
[2025-01-02] MEDS: MELATONIN 3 MG TAB PO PRN (20:19)
[2025-01-03 08:33] LABS: Creatinine Clr Calc Pharmacy 74.8 ml/min
[2025-01-03 09:25] LABS: Hematocrit (blood only) 36.5 % (37.0-47.0); Hemoglobin 12.1 g/dL (12.0-16.0); Mean Corpuscular Hemoglobin 29.4 pg (25.0-34.0); Mean Corpuscular Volume 88.8 fL (80.0-100.0); Platelet Count 153 K/uL (130-400); RDW Standard Deviation 46.1 fL (36.4-46.3); Red Blood Count 4.11 M/uL (4.20-5.40); White Blood Count 8.67 K/ul (4.8-10.8)
--- NOTE | 2025-01-03 17:46 | Hospitalist Progress Note ---
Date of Service January 03, 2025 Assessment & Plan (1) Pyelonephritis: (2) CELESTE (acute kidney injury): Plan 64-year-old female PMHx leg cramps, HTN, and allergies presenting for severe back pain and inability to stand. Evaluation significant for leukocytosis, elevated creatinine, and presence of UTI. Imaging reveals L perinephric fat stranding, hydronephrosis, with nonobstructing calculi. Admission for pyelonephritis. #Pyelonephritis/CELESTE Found to have pyelonephritis at the time of admission; urine culture has resulted with pansensitive E. coli; narrow antibiotics as detailed below continue Rocephin 2 g IV daily WBC has resolved. #HTN- Metoprolol, Lisinopril -- hold lisinopril in presence of CELESTE #Psych- Bupropion, venlafaxine - continue consult behavior health liason for depression management #Neuropathy- Gabapentin - continue #Allergies- Loratadine - continue #Migraines- Topiramate - continue VTE Prophylaxis: SCDs Admission and Anticipated Discharge Date Admission Date: December 31, 2024 Subjective 64 yo female reports no new symptoms. Patient is refusing rehab. Physical Exam Constitutional: WD/WN, vitals as above Neck: trachea midline, no thyromegaly Respiratory: normal respiratory effort, lungs clear to auscultation Cardiovascular: Rate/Rhythm: regular rate and regular rhythm Gastrointestinal (Abdomen): normal bowel sounds, soft, nontender, no hepatosplenomegaly Psychiatric: A+Ox3, euthymic affect Results & Data Results & Data Vital Signs (Past 12 Hours) Vital Signs Temp Pulse Pulse Resp BP Pulse Ox O2 Del Method 01/03/25 15:24 36.6 C 86 20 121/74 93 Room Air 01/03/25 14:19 65 01/03/25 11:14 36.8 C 83 20 119/76 91 Room Air 01/03/25 07:26 88 01/03/25 07:18 36.8 C 88 19 104/67 94 Room Air PG Care Time/CCT Total # of Minutes Spent Total Time Spent with Patient: Total time spent is greater than 50% in coordination of care (as documented) at patient's floor/unit and/or counseling patient: Coding Level of Care Code 04848 SUB INP/OBS CARE 3/50MIN Diagnoses Pyelonephritis N12 CELESTE (acute kidney injury) N17.9
[2025-01-04 07:54] VITALS: BP 110/72; PULSE 88; RESP 18; TEMP 98.2; O2SAT 95
--- NOTE | 2025-01-04 11:19 | Discharge Summary ---
Discharge Summary Date of Service January 04, 2025 Principal Dx & Hospital Course #1 = Principal Diagnosis (1) Pyelonephritis: (2) CELESTE (acute kidney injury): Plan 64-year-old female PMHx leg cramps, HTN, and allergies presenting for severe back pain and inability to stand. Evaluation significant for leukocytosis, elevated creatinine, and presence of UTI. Imaging reveals L perinephric fat stranding, hydronephrosis, with nonobstructing calculi. Admission for pyelonephritis. #Pyelonephritis/CELESTE Found to have pyelonephritis at the time of admission; urine culture has resulted with pansensitive E. coli; narrow antibiotics as detailed below continue Rocephin 2 g IV daily WBC has resolved. #HTN- Metoprolol, Lisinopril -- hold lisinopril in presence of CELESTE #Psych- Bupropion, venlafaxine - continue consult [facility] liason for depression management #Neuropathy- Gabapentin - continue #Allergies- Loratadine - continue #Migraines- Topiramate - continue VTE Prophylaxis: SCDs Admission HPI Per Admitting Provider 64-year-old female PMHx leg cramps, HTN, and allergies presenting for severe back pain and inability to stand. Patient states that she "passed out" twice the night [employer]. She states that she felt dizzy just prior to passing out and "did not feel good." She says she stood up quick felt presyncopal, and felt that she was going to fall down. She did have back pain that was in the middle, but did radiate to the right side as well. States that is send has had back pain. 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 No urinary incontinence or saddle anesthesia. Admits to fever 100 to 102 F, unable to tell me when these fevers were however. She started having full body shaking approximately 15 minutes prior to my meeting with her. She admits to lower abdominal pain, denies any LUTS. No chest pain or shortness of breath. Patient has not been sick otherwise. Denies palpitations, N/V/D/C, URI symptoms, weakness, recent sick contacts. ED evaluation reveals CBC leukocytosis 14.21, stable H/H; PT/INR WNL; CMP Cl 108, Cr 1.64, ratio 7.9, glucose 168, alk phos 114; trop 2.5; UA (+) infection; flu/COVID/RSV negative; CTAP L kidney moderate perinephric fat stranding/mild hydronephrosis, nonobstructing calculi.; Provided with 2L NSS, zofran 4mg IV, morphine 4mg IV, and ceftriaxone 2g IV in ED. Please see Dr. Garcia's attestation for adjustments/additions to treatment plan. Discharge Exam Constitutional WD/WN, vitals as above Neck trachea midline, no thyromegaly Respiratory normal respiratory effort, lungs clear to auscultation Cardiovascular Rate/Rhythm: regular rate, regular rhythm and + tachycardic Gastrointestinal (Abdomen) normal bowel sounds, soft, nontender, no hepatosplenomegaly Psychiatric A+Ox3, euthymic affect Discharge Plan Discharge Items Reason For Visit: PYELONEPHRITIS Condition on Discharge: Fair Follow-up/Referrals: Marita Menon, C.R.N.P [Primary Care Provider] - Medications and DC Order Prescriptions: No Action venlafaxine 75 mg capsule,extended release 24hr 75 mg PO DAILY gabapentin 600 mg tablet 600 mg PO TID lisinopril 20 mg tablet 20 mg PO DAILY metoprolol succinate 25 mg tablet extended release 24 hr 25 mg PO DAILY albuterol sulfate 90 mcg/actuation HFA aerosol inhaler 2 puff INHALATION QID PRN (Reason: Shortness Of Breath Or Wheezing) topiramate 100 mg tablet 100 mg PO BID loratadine 10 mg Tablet 10 mg PO DAILY bupropion HCl 200 mg tablet sustained-release 12 hr 200 mg PO BID Leg Cramps 1 dose PO DIRECTED PRN (Reason: LEG CRAMPS) Admission Data Admit Date/Time: 12/31/24 04:50 Attending Provider: Dick Rubin Admit Provider: Landon Garcia Primary Care Provider: Marita Menon Other Providers: Landon Garcia Hospital Stay Data Consultations 12/31/24 04:05 ED Decision to Admit Stat 01/01/25 13:03 Consult Behavioral Health Liaison Routine Diagnostic Imagining Performed 12/30/24 23:04 CT Abd and Pelvis [CT abd pelvis IV con only] Stat Coding Diagnoses Pyelonephritis N12 CELESTE (acute kidney injury) N17.9
--- NOTE | 2025-01-07 07:07 | Coding Query ---
5 SEPSIS To promote full compliance with coding requirements relating to patient care, physician participation is requested in all cases of critical systems technician uncertainty. Please assist us with the question(s) below: The medical record reflects the following clinical findings: Pt admitted with pyelonephritis. 01.01 progress note documented severe sepsis, pt hypotensive after admission. Please check below the phrase that applies. Thank you. Chad Guevara, [facility] ____ ( )Bacteremia (Nonspecific laboratory finding of bacteria in the blood) Specify Organism ( ) Present on Admission ( ) Not present on admission ( ) Unable to clinically determine ( ) Septicemia (Systemic disease associated with the presence of pathogenic microorganisms in the blood): Specify Organism ( ) Present on Admission ( ) Not present on admission ( ) Unable to clinically determine ( ) Sepsis Specify Organism Specify Associated Condition/Diagnosis ( ) Present on Admission ( ) Not present on admission ( ) Unable to clinically determine ( ) Severe Sepsis (Sepsis associated with acute organ dysfunction) Specify Organism Specify Associated Condition/Diagnosis ( ) Present on Admission ( ) Not present on admission ( ) Unable to clinically determine ( ) Septic Shock (Severe sepsis with acute circulatory failure, unexplained by other causes) ( ) Present on Admission ( ) Not present on admission ( ) Unable to clinically determine ( ) Other, patient has: MTDD
== END 2025-01-04 12:15 | disposition home or self-care (01) ==
LOC: ED 22:57 → 2S 12-31 04:50 → SUATTDRO 12-31 04:50 → INTOOBSV 12-31 04:50 → 2S 12-31 05:13